=== PATIENT | male | born 1990 | race Caucasian/White ===

== ENCOUNTER 2021-03-29 12:26 | Emergency (ER) | payer OTHER ==
[2021-03-29 13:15] LABS: HEMOGLOBIN 14.9 gm/dl (14.0-17.5); RED BLOOD COUNT 5.52 M/UL (4.20-5.50); WHITE BLOOD COUNT 13.6 K/UL (4.5-11.0)
[2021-03-29 13:18] LABS: BUN/CREATININE RATIO 12 (0-10)
== END 2021-03-29 16:05 | disposition home or self-care (01) ==
LOC: ER1 12:26
PROVIDERS: Nurse Practitioner
DX: J06.9 Acute upper respiratory infection, unspecified (principal); Z20.822 Contact with and (suspected) exposure to COVID-19
CPT/HCPCS: 0240U; 71045; 80048; 82550; 82553; 83874; 84484; 85025; 93005; 99284

== ENCOUNTER 2021-08-25 22:18 | Emergency (ER) | payer OTHER, MEDICAID ==
[2021-08-26 00:05] LABS: HEMOGLOBIN 15.5 gm/dl (14.0-17.5); RED BLOOD COUNT 5.57 M/UL (4.20-5.50)
[2021-08-26 00:51] LABS: BUN/CREATININE RATIO 12 (0-10)
[2021-08-26] MEDS ORDERED: ONDANSETRON ODT4 MG SL (01:38)
[2021-08-26] MEDS ORDERED: OMEPRAZOLE20 M1 PO (01:38)
== END 2021-08-26 01:48 | disposition home or self-care (01) ==
LOC: ER1 22:18
PROVIDERS: Physician Assistant
DX: R10.12 Left upper quadrant pain (principal); R10.13 Epigastric pain; R11.0 Nausea; R10.812 Left upper quadrant abdominal tenderness; R10.816 Epigastric abdominal tenderness; F17.200 Nicotine dependence, unspecified, uncomplicated
CPT/HCPCS: 80053; 81001; 83690; 85025; 87086; 96374; 99284; J2405